=== PATIENT | female | born 1995 | race Caucasian/White ===

== ENCOUNTER 2019-01-18 12:56 | Emergency (ER) | payer OTHER ==
[~2019-01-18] VITALS: Ht 167.6 cm; Wt 77.7 kg
[2019-01-18] MEDS ORDERED: RANI15TA PO (13:10)
[2019-01-18] MEDS ORDERED: PREN29TA4 PO (13:10)
[2019-01-18 13:39] LABS: BASO % 0.3 % (0.0-1.0); EOS # 0.1 10^3/uL (0.0-0.5); EOS % 1.8 % (0.0-3.0); LYMPH # 1.6 10^3/uL (1.5-5.0); LYMPH % 22.4 % (24.0-44.0); MEAN CORPUSCULAR HEMOGLOBIN 31.9 pg (27.0-33.0); MEAN CORPUSCULAR HGB CONC 34.2 g/dl (32.0-36.5); MEAN CORPUSCULAR VOLUME 93.1 fl (80.0-96.0); MONO # 0.5 10^3/uL (0.0-0.8); MONO % 7.4 % (0.0-5.0); NEUTROPHILS # 4.8 10^3/uL (1.5-8.5); NEUTROPHILS % 67.7 % (36.0-66.0); PLATELET COUNT, AUTOMATED 281 10^3/uL (150-450); RED BLOOD COUNT 4.08 10^6/uL (4.00-5.40)
[2019-01-18 14:32] LABS: BLOOD UREA NITROGEN 7 MG/DL (7-18); CALCIUM LEVEL 8.9 MG/DL (8.5-10.1); CARBON DIOXIDE LEVEL 26 MEQ/L (21-32); CHLORIDE LEVEL 105 MEQ/L (98-107); CREATININE FOR GFR 0.58 MG/DL (0.55-1.30); GLOMERULAR FILTRATION RATE > 60.0 (>60); GLUCOSE, FASTING 81 MG/DL (70-100); HCG, SERUM QUANTITATIVE 191011 MIU/ML; SODIUM LEVEL 135 MEQ/L (136-145)
[2019-01-18] MEDS ORDERED: KEFL500C17 PO (15:03)
[2019-01-18 15:14] VITALS: BP 107/52
--- NOTE | 2019-01-18 15:28 | REP ---
FIRST TRIMESTER ULTRASOUND: Real-time sonographic evaluation of the gravid uterus is performed. There is a single living intrauterine gestation. The estimated gestational age is 8 weeks 4 days based on crown-rump length of 20 mm. EDC 08/26/2019. heart rate 169 beats per minute. There is no subchorionic hemorrhage. Cystic structure of the right ovary probably represents a corpus luteum 3.9 x 2.5 x 2.8 cm. There is no evidence of ovarian torsion. Electronically Signed by Manuel Haddad MD 01/20/2019 10:57 A
[2019-01-18 16:15] LABS: CHLAMYDIA DNA AMPLIFICATION NEGATIVE (NEGATIVE); GC DNA AMPLIFICATION NEGATIVE (NEGATIVE)
== END 2019-01-18 15:21 | disposition home or self-care (01) ==
LOC: M ED 12:56
DX: O23.41 Unspecified infection of urinary tract in pregnancy, first trimester (principal); Z3A.08 8 weeks gestation of pregnancy; Z88.0 Allergy status to penicillin; Z88.5 Allergy status to narcotic agent; Z88.8 Allergy status to other drugs, medicaments and biological substances; Z79.899 Other long term (current) drug therapy

== ENCOUNTER 2019-04-22 01:04 | Outpatient (CLI) | payer OTHER ==
[~2019-04-22] VITALS: Ht 167.6 cm; Wt 85.2 kg
[~2019-04-22 01:04] MED LIST: KEFL500C17 PO; MACR100C43 PO; NITR100C2; PREN29TA4 PO; RANI15TA PO
[2019-04-22 01:15] VITALS: BP 118/64
[2019-04-22 02:16] LABS: APPEARANCE, URINE CLEAR (CLEAR); BACTERIA, URINE AUTO 1+ (NEGATIVE); BILIRUBIN, URINE AUTO NEGATIVE (NEGATIVE); BLOOD, URINE BLOOD NEGATIVE (NEGATIVE); COLOR, URINE STRAW (YELLOW); GLUCOSE, URINE (UA) AUTO NEGATIVE (NEGATIVE); KETONE, URINE AUTO NEGATIVE (NEGATIVE); LEUKOCYTE ESTERASE, URINE AUTO NEGATIVE (NEGATIVE); NITRITE, URINE AUTO NEGATIVE (NEGATIVE); PROTEIN, URINE AUTO NEGATIVE (NEGATIVE); RBC, URINE AUTO 0 /HPF (0-3); SPECIFIC GRAVITY URINE AUTO 1.006 (1.002-1.035); SQUAMOUS EPITHELIAL CELL UR AU 0 /HPF (0-6); UROBILINOGEN, URINE AUTO 0.2 mg/dL (0.0-2.0); WBC, URINE AUTO 1 /HPF (0-3)
[2019-04-22 02:31] VITALS: BP 118/55
--- NOTE | 2019-04-22 02:36 | IPNPDOC ---
Text Note Date of Service The patient was seen on 04/22/19. NOTE patient is a 23 yo @ 22 wks gestation presents with concerns for regular contractions x 2 hrs. report having abdominal cramping that lasts 30-60secs every 5-7mins. She has been having cramping like these every 2hrs since yesterday am. denies vb/lof. had coitus yesterday AM. vitals: normal NAD abd: gravid, soft, nt, palpated soft when patient is having cramping le: no edema/erythema/tenderness speculum exam: white vaginal discharge, cervix not visualized due to patient inability to relax CE: posterior, unable to reach cervix tvus: cervical length 3.4cm, t-shaped, neg funneling, neg dynamic change. UA: shows S.06, + Leukocyte, neg nitrite, bacteria 1+. fhr: 140's toco: no ctx a/p patient is at 22 wks gestation with lower abdominal cramping, no e/o labor with normal cervical length, no contractions on toco and uterus palpate soft when patient complaint she has cramping. UA possible bacteruria, start treatment with macrobid. patient given return precautions. f/u as regularly scheduled. DO ESTELLA Macias LUAT N. DO Apr 22, 2019 01:49
== END 2019-04-22 02:33 | disposition home or self-care (01) ==
LOC: M LDO 01:04
PROVIDERS: ATTEND Obstetrics & Gynecology
DX: O26.892 Other specified pregnancy related conditions, second trimester (principal); O47.9 False labor, unspecified; R10.9 Unspecified abdominal pain; Z3A.22 22 weeks gestation of pregnancy
CPT/HCPCS: 76815; 81001; 87086; G0378; G0463